=== PATIENT | female | born 1960 | race Caucasian/White ===

== ENCOUNTER 2017-02-06 18:18 | Emergency (ER) | payer MEDICARE, MEDICAID ==
--- NOTE | 2017-02-06 18:39 | ED Physician Chart ---
Chief Complaint/HPI - Patient Information Date Seen:: 02/06/17 Time Seen:: 18:33 Chief Complaint:: abd pain History of Present Illness:: pt here for 2 wks of worsening low mid abd crampy pain..mod severe now. with associated nausea and loss of apetite. 12 lbs wt loss and diarrhea of dark color 6-8x/day. pt is folowed by [facility] for last year and was txd for h pylori without success. she had a HH repair 12/25 and gb sx in past. pt has been txd for uti for last month w a abx that starts w a letter 'N "..possibly nitrofurantoin she has no fever or back pain or chest pain or uri sx. she is postmenopausal. Allergies:: Allergies Allergy/AdvReac Type Severity Reaction Status Date / Time No Known Allergies Allergy Verified 02/06/17 18:26 Vitals:: Vital Signs - 8 hr 02/06/17 18:18 Temp 97.0 F HR 82 RR 16 BP 123/84 O2 Sat % 96 Historian:: Patient Review of Systems - Review of Systems General/Constitutional: No fever, No chills, No weight loss, No weakness, No diaphoresis, No edema, No loss of appetite Skin: No skin lesions, No rash, No bruising Head: No headache, No light-headedness Eyes: No loss of vision, No pain, No diplopia ENT: No earache, No nasal drainage, No sore throat, No tinnitus Neck: No neck pain, No swelling, No thyromegaly, No stiffness, No mass noted Cardio Vascular: No chest pain, No palpitations, No PND, No orthopnea, No edema Pulmonary: No SOB, No cough, No sputum, No wheezing GI: Nausea, No vomiting, Diarrhea, Pain, No melena, No hematochezia, No constipation, No hematemesis G/U: No dysuria, No frequency, No hematuria Actuarial Technician: No vaginal discharge, No abnormal vaginal bleed Musculoskeletal: No bone or joint pain, No back pain, No muscle pain Endocrine: No polyuria, No polydipsia Psychiatric: No prior psych history, No depression, No anxiety, No suicidal ideation Hematopoietic: No bruising, No lymphadenopathy Allergic/Immuno: No urticaria, No angioedema Neurological: No syncope, No focal symptoms, No weakness, No paresthesia, No headache, No seizure, No dizziness, No confusion, No vertigo Past Medical History - Past Medical History Past Medical History: DM, Asthma/COPD, PUD/GERD Social History: Non Smoker, No Alcohol Surgical History: Cholecystectomy, Hernia (hh repair 12/25) Medication: Reviewed Family Medical History - Family Member Mother Living Status: Hx Family Diabetes: Yes Physical Exam - Physical Examination General/Constitutional: Awake, Well-developed, well-nourished, Alert, No distress, GCS 15, Non-toxic appearing, Ambulatory Head: Atraumatic Eyes: Lids, conjuctiva normal, PERRL, EOMI Skin: Nl inspection, No rash, No skin lesions, No ecchymosis, Well hydrated, No lymphadenopathy ENMT: External ears, nose nl, Nasal exam nl, Lips, teeth, gums nl Neck: Nontender, Full ROM w/o pain, No JVD, No nuchal rigidity, No bruit, No mass, No stridor Respiratory: Nl effort/Exclusion, Clear to Auscultation, No Wheeze/Rhonchi/Rales Cardio Vascular: RRR, No murmur, gallop, rubs, NL S1 S2 GI: No organomegaly, No hernia, Normal BS's, Nondistended, No mass/bruits, No McBurney tenderness Other GI comments:: vague tndr in low mid abd. no masses. prior gb sx scars(laproscopic). pos nabs. no rebound. pt appears well hydrated w good skin turgor. : No CVA tenderness Extremities: No tenderness or effusion, Full ROM, normal strength in all extremities, No edema, Normal digits & nails Neuro/Psych: Alert/oriented, DTR's symmetric, Normal sensory exam, Normal motor strength, Judgement/insight normal, Mood normal, Normal gait, No focal deficits Misc: normal gait, Normal back, No paraspinal tenderness Labs/Radiology/EKG Results - Lab Results Results: Laboratory Tests 02/06/17 02/06/17 02/06/17 18:55 18:55 18:55 WBC 9.7 RBC 4.71 Hgb 12.9 Hct 39.5 MCV 83.9 MCH 27.3 MCHC Differential 32.5 RDW 14.1 Plt Count 342 MPV 8.0 Neutrophils % 59.1 Lymphocytes % 29.6 Monocytes % 8.4 Eosinophils % 2.3 Basophils % 0.6 Sodium 134 L Potassium 3.4 L Chloride 106 Carbon Dioxide 22.5 Anion Gap 8.9 BUN 19 Creatinine 0.7 Est GFR ( Amer) > 60.0 Est GFR (Non-Af Amer) > 60.0 BUN/Creatinine Ratio 27.1 Glucose 92 Calcium 9.3 Total Bilirubin 0.3 AST 21 ALT 23 Alkaline Phosphatase 101 Total Protein 7.3 Albumin 4.5 Globulin 2.8 Albumin/Globulin Ratio 1.6 Lipase 45 Serum , Qual NEGATIVE Urine Source Urine Color Urine Clarity Urine pH Ur Specific [place] Urine Protein Urine Glucose (UA) Urine Ketones Urine Blood Urine Nitrate Urine Bilirubin Urine Urobilinogen Ur Leukocyte Esterase Urine RBC Urine WBC Ur Epithelial Cells Urine Bacteria 02/06/17 19:00 WBC RBC Hgb Hct MCV MCH MCHC Differential RDW Plt Count MPV Neutrophils % Lymphocytes % Monocytes % Eosinophils % Basophils % Sodium Potassium Chloride Carbon Dioxide Anion Gap BUN Creatinine Est GFR ( Amer) Est GFR (Non-Af Amer) BUN/Creatinine Ratio Glucose Calcium Total Bilirubin AST ALT Alkaline Phosphatase Total Protein Albumin Globulin Albumin/Globulin Ratio Lipase Serum , Qual Urine Source CLEAN C Urine Color YELLOW Urine Clarity CLEAR Urine pH 6.0 Ur Specific [place] 1.020 Urine Protein TRACE Urine Glucose (UA) NEGATIVE Urine Ketones 15 H Urine Blood TRACE Urine Nitrate NEGATIVE Urine Bilirubin NEGATIVE Urine Urobilinogen 0.2 Ur Leukocyte Esterase NEGATIVE Urine RBC 0-2 Urine WBC 6-10 H Ur Epithelial Cells MODERATE Urine Bacteria NONE SEEN - Radiology Results Results: ct abd/p no active dz. appy ok. diverticulosis. no inflamation. stone in rt kidney (not new per pt). fatty mass at distal esophagus (assumed to be post op change from sx last yr) ED Septic Shock - . Is Septic Shock (SBP<90, OR Lactate>4 mmol\\L) present?: No - <6hrs of presentation: Vital Signs: Vital Signs - 8 hr 02/06/17 18:18 Temp 97.0 F HR 82 RR 16 BP 123/84 O2 Sat % 96 Reassessment (Disposition) - Reassessment Reassessment:: results all reviewed w pt. she is asking for pain med now. ct and labs all done and reviewed w pt. plan dw pt. fu w pmd tmrw advised. pt says she finished abx for uti today..wants more since sign of uti seen on labs (advised pt this is hard to do without knownig what she is on and why...will give rx but advise she see pmd tmrw for confirmation. pt to return if worse pain/fever. .norco 5s no 14. rx bactrim ds x 5d bid. she may use immodiium prn. Reassessment Condition:: Improved - Diagnosis Diagnosis:: 1 uti 2 gastroenteritis/ diarrhea 3 abdominal pain of uncertain etiology - Aftercare/Follow up Instructions Aftercare/Follow-Up Instructions:: Counseled pt regarding lab results/diagnosis & need follow up - Patient Disposition Discharge/Transfer:: Home Condition at Disposition:: Improved
[2017-02-06] MEDS ORDERED: Sodium Chloride 0.9% 1,000 ML IV ONE (18:40)
[2017-02-06 19:06] LABS: % BASOPHILS 0.6 % (0.0-2.0); % EOSINOPHILS 2.3 % (0.0-5.0); % LYMPHOCYTES 29.6 % (20.0-50.0); % MONOCYTES 8.4 % (2.0-10.0); % NEUTROPHILS 59.1 % (40.0-80.0); HEMATOCRIT 39.5 % (35.0-45.0); HEMOGLOBIN 12.9 gm/dL (11.7-15.5); MEAN CELL VOLUME 83.9 fl (81-100); MEAN CORPUSCULAR HEMOGLOBIN 27.3 pg (27.0-31.0); MEAN CORPUSCULAR HGB CONC 32.5 pg (28.0-36.0); NEUTROPHILE ABSOLUTE 5.7 Th/cmm (1.8-8.0); PLATELET COUNT 342 Th/cmm (150-400); RED BLOOD COUNT 4.71 Mil/cmm (3.80-5.10); RED CELL DISTRIBUTION WIDTH 14.1 % (11.5-20.0); WHITE BLOOD COUNT 9.7 Th/cmm (4.8-10.8)
[2017-02-06 19:22] LABS: URINE BILIRUBIN NEGATIVE (NEGATIVE); URINE BLOOD TRACE (NEGATIVE); URINE COLOR YELLOW; URINE GLUCOSE (UA) NEGATIVE (NEGATIVE); URINE KETONE 15 mg/dL (NEGATIVE)
[2017-02-06 19:22] LABS: ALB/GLOB RATIO 1.6 (1.0-1.8); ALKALINE PHOSPHATASE 101 U/L (34-104); ANION GAP 8.9 (7.0-16.0); BILIRUBIN,TOTAL 0.3 mg/dL (0.3-1.0); BUN - UREA NITROGEN 19 mg/dL (7-25); BUN/CREATININE RATIO 27.1; CALCIUM SERUM 9.3 mg/dL (8.6-10.3); CARBON DIOXIDE 22.5 mEq/L (21.0-31.0); CHLORIDE 106 mEq/L (98-107); CREATININE - SERUM 0.7 mg/dL (0.6-1.2); GLUCOSE 92 mg/dL (70-105); LIPASE 45 U/L (11-82); POTASSIUM SERUM 3.4 mEq/L (3.5-5.1); SGOT 21 U/L (13-39); SGPT/ALT 23 U/L (7-52); SODIUM SERUM 134 mEq/L (136-145)
[2017-02-06 19:23] LABS: URINE BACTERIA NONE SEEN /hpf (NONE SEEN); URINE EPITHELIAL CELLS MODERATE /lpf (FEW); URINE PROTEIN TRACE mg/dL (NEGATIVE); URINE RBC 0-2 /hpf (0-5); URINE UROBILINOGEN 0.2 E.U./dL (0.2 - 1.0)
--- NOTE | 2017-02-07 10:41 | Diagnostic Imaging Report ---
CT scan abdomen and pelvis without intravenous contrast HISTORY: Pain Total DLP equals 387 CTDI equals 8.2 Axial sections were obtained from the xiphoid process down to the pubic symphysis. Limited sections through the lower chest demonstrate a thick-walled dilated esophagus. Apparent intraluminal density is noted. Etiology uncertain. Clinical correlation and if necessary endoscopy provide for further assessment. The liver is enlarged. There is a decrease in overall parenchymal density consistent with fatty infiltration. No focal lesions. The spleen appears normal. No focal bowel is seen within the pancreas. Surgical clips are seen in the cordell hepatis region consistent with a prior cholecystectomy. A punctate nonobstructing calculus is seen within the medullary region of the right kidney. The left kidney appears normal. The exam of the pelvis demonstrates preservation of normal fat planes. No abnormal soft tissue masses or abnormal fluid collections. Several colonic diverticula noted. No abnormalities are seen in the region of the appendix. IMPRESSION: 1. Abnormal thick walled lower esophagus with suggestion of intraluminal density. Etiology uncertain. Clinical correlation and if necessary endoscopy would provide for further assessment. 2. Hepatomegaly along with changes consistent with fatty infiltration. The findings should be correlated with liver function tests 3. Diverticulosis 4. Punctate nonobstructing right renal calculus 5. Findings of a prior cholecystectomy
== END 2017-02-06 20:15 | disposition home or self-care (01) ==
LOC: ER 18:18
DX: R10.9 Unspecified abdominal pain (principal); N39.0 Urinary tract infection, site not specified; K52.9 Noninfective gastroenteritis and colitis, unspecified; E11.9 Type 2 diabetes mellitus without complications; J45.909 Unspecified asthma, uncomplicated; K21.9 Gastro-esophageal reflux disease without esophagitis; Z90.49 Acquired absence of other specified parts of digestive tract
CPT/HCPCS: 99285; 96374; 74176; 36415; 85025; 81001; 84703; 83690; 80053; J2405; J7030

== ENCOUNTER 2017-02-28 15:37 | Inpatient (IN) | payer MEDICARE, MEDICAID ==
--- NOTE | 2017-02-28 17:05 | ED Physician Chart ---
Chief Complaint/HPI - Patient Information Date Seen:: 02/28/17 Time Seen:: 16:50 Chief Complaint:: abdominal pain History of Present Illness:: The patient has had mid and upper abdominal pain intermittently for a few weeks. She vomited 3 times yesterday and 2 times today. She said red bloody diarrhea 5-6 times today. She estimates about 1/2 cup of blood loss from the bloody diarrhea today. Patient was diagnosed as having H. pylori about 1 year ago. Patient has had 3-4 prior episodes of bloody diarrhea last one about 6 months ago. Allergies:: Allergies Allergy/AdvReac Type Severity Reaction Status Date / Time No Known Allergies Allergy Verified 02/28/17 16:25 Vitals:: Vital Signs - 8 hr 02/28/17 16:17 Temp 98.4 F HR 60 RR 16 BP 125/74 O2 Sat % 96 Historian:: Patient Review:: Nurse's Note Reviewed Review of Systems - Review of Systems General/Constitutional: No fever, No chills Skin: No skin lesions Head: No headache Eyes: No loss of vision ENT: No earache Neck: No neck pain Cardio Vascular: No chest pain, No palpitations Pulmonary: No cough, No sputum GI: Nausea, Vomiting, Diarrhea G/U: No dysuria, No hematuria Musculoskeletal: No bone or joint pain, No back pain, No muscle pain Endocrine: No polyuria, No polydipsia Psychiatric: No prior psych history, No depression Hematopoietic: No bruising Allergic/Immuno: No urticaria Neurological: No syncope, No focal symptoms Past Medical History - Past Medical History Past Medical History: HTN, Asthma/COPD, Dyslipidemia, Other (diverticulosis; fibromyalgia) Family History: Diabetes Melitus, HTN Social History: Non Smoker, No Alcohol Surgical History: Cholecystectomy, other (hiatal hernia repair) Psychiatricy History: None Medication: Reviewed Family Medical History - Family Member Mother Living Status: Hx Family Diabetes: Yes Physical Exam - Physical Examination General/Constitutional: Well-developed, well-nourished, Alert, No distress Head: Atraumatic Eyes: Lids, conjuctiva normal, PERRL Skin: Nl inspection, No rash, No skin lesions, No ecchymosis ENMT: External ears, nose nl, Lips, teeth, gums nl, Oropharynx nl, Tonsils nl Neck: No nuchal rigidity Respiratory: Nl effort/Exclusion, Clear to Auscultation, No Wheeze/Rhonchi/Rales Cardio Vascular: RRR, No murmur, gallop, rubs GI: No hernia, Normal BS's Other GI comments:: Upper and midabdominal tenderness : No CVA tenderness Extremities: Normal digits & nails Neuro/Psych: Alert/oriented, No focal deficits Misc: Normal back, No paraspinal tenderness Labs/Radiology/EKG Results - Lab Results Results: Laboratory Results - last 24 hr 02/28/17 02/28/17 02/28/17 17:06 17:06 17:11 WBC 8.9 RBC 4.23 Hgb 11.8 Hct 35.6 MCV 84.1 MCH 27.8 MCHC Differential 33.0 RDW 14.0 Plt Count 286 MPV 7.9 Neutrophils % 63.6 Lymphocytes % 27.2 Monocytes % 6.7 Eosinophils % 2.1 Basophils % 0.4 Sodium 136 Potassium 3.5 Chloride 107 Carbon Dioxide 25.1 Anion Gap 7.4 BUN 11 Creatinine 0.7 Est GFR ( Amer) > 60.0 Est GFR (Non-Af Amer) > 60.0 BUN/Creatinine Ratio 15.7 Glucose 107 H Calcium 9.2 Lipase 40 Urine Source [place] Urine Color YELLOW Urine Clarity SLIGHT [place]ZY Urine pH 6.0 Ur Specific [place] 1.025 Urine Protein NEGATIVE Urine Glucose (UA) NEGATIVE Urine Ketones NEGATIVE Urine Blood NEGATIVE Urine Nitrate NEGATIVE Urine Bilirubin NEGATIVE Urine Urobilinogen 0.2 Ur Leukocyte Esterase SMALL H Urine RBC NONE SEEN Urine WBC 10-25 H Ur Epithelial Cells MODERATE Urine Bacteria FEW - Radiology Results Results: CT scan of abdomen and pelvis showed mild diverticulosis ED Septic Shock - . Is Septic Shock (SBP<90, OR Lactate>4 mmol\L) present?: No - <6hrs of presentation: Vital Signs: Vital Signs - 8 hr 02/28/17 16:17 Temp 98.4 F HR 60 RR 16 BP 125/74 O2 Sat % 96 ED Discharge Plan - Patient Disposition Admit/Discharge/Transfer: Acute Care w/in this hosp Condition at Disposition: Stable
[2017-02-28] MEDS ORDERED: Sodium Chloride 0.9% 1,000 ML IV ONE ×2 (17:08→20:09)
[2017-02-28] MEDS ORDERED: HYDROmorphone 2 mg/mL 1mL Vial IVP STA (17:13)
[2017-02-28 17:14] LABS: % BASOPHILS 0.4 % (0.0-2.0); % EOSINOPHILS 2.1 % (0.0-5.0); % LYMPHOCYTES 27.2 % (20.0-50.0); % MONOCYTES 6.7 % (2.0-10.0); % NEUTROPHILS 63.6 % (40.0-80.0); HEMATOCRIT 35.6 % (35.0-45.0); HEMOGLOBIN 11.8 gm/dL (11.7-15.5); MEAN CELL VOLUME 84.1 fl (81-100); MEAN CORPUSCULAR HEMOGLOBIN 27.8 pg (27.0-31.0); MEAN PLATELET VOLUME 7.9 fl; NEUTROPHILE ABSOLUTE 5.7 Th/cmm (1.8-8.0); PLATELET COUNT 286 Th/cmm (150-400); RED BLOOD COUNT 4.23 Mil/cmm (3.80-5.10); WHITE BLOOD COUNT 8.9 Th/cmm (4.8-10.8)
[2017-02-28] MEDS ORDERED: HYDROmorphone 2 mg/mL 1mL Vial ONE ×2 (17:20→22:36)
[2017-02-28 17:31] LABS: ANION GAP 7.4 (7.0-16.0); BUN - UREA NITROGEN 11 mg/dL (7-25); BUN/CREATININE RATIO 15.7; CALCIUM SERUM 9.2 mg/dL (8.6-10.3); CARBON DIOXIDE 25.1 mEq/L (21.0-31.0); CHLORIDE 107 mEq/L (98-107); CREATININE - SERUM 0.7 mg/dL (0.6-1.2); GLUCOSE 107 mg/dL (70-105); LIPASE 40 U/L (11-82); POTASSIUM SERUM 3.5 mEq/L (3.5-5.1); SODIUM SERUM 136 mEq/L (136-145)
[2017-02-28 17:35] LABS: URINE BILIRUBIN NEGATIVE (NEGATIVE); URINE BLOOD NEGATIVE (NEGATIVE); URINE COLOR YELLOW; URINE GLUCOSE (UA) NEGATIVE (NEGATIVE); URINE KETONE NEGATIVE (NEGATIVE); URINE PROTEIN NEGATIVE (NEGATIVE); URINE RBC NONE SEEN /hpf (0-5); URINE UROBILINOGEN 0.2 E.U./dL (0.2 - 1.0)
[2017-02-28 17:36] LABS: URINE BACTERIA FEW /hpf (NONE SEEN); URINE EPITHELIAL CELLS MODERATE /lpf (FEW)
[2017-02-28] MEDS ORDERED: Diatrizoate Meglumine/Diatri 30 mL Sol ONE (17:41)
[2017-02-28] MEDS ORDERED: Ciprofloxacin 200mg Premix PB 200 MG/100 ML BAG IV ONE (23:36)
[2017-02-28] MEDS: Ciprofloxacin 200mg Premix PB 200 MG/100 ML BAG IV SCH (23:50)
[2017-03-01] MEDS ORDERED: D5-0.45NS 1,000 ML IV ONE (00:28)
[2017-03-01 00:34] VITALS: BP 136/81
[2017-03-01] MEDS: HYDROmorphone 1 mg/mL 1mL Syr IVP PRN ×6 (00:50→22:50)
[2017-03-01] MEDS ORDERED: metroNIDAZOLE 500mg/NS 100mL 500 MG/100 ML BAG IV ONE (05:05)
[2017-03-01] MEDS: methylPREDNISolone SS 40 mg Vial IVP SCH ×3 (05:12→21:43)
[2017-03-01] MEDS: metroNIDAZOLE 500mg/NS 100mL 500 MG/100 ML BAG IV SCH ×3 (05:12→21:43)
[2017-03-01 07:28] LABS: ALB/GLOB RATIO 1.6 (1.0-1.8); ALKALINE PHOSPHATASE 84 U/L (34-104); ANION GAP 10.2 (7.0-16.0); BILIRUBIN,TOTAL 0.2 mg/dL (0.3-1.0); BUN - UREA NITROGEN 5 mg/dL (7-25); BUN/CREATININE RATIO 8.3; CALCIUM SERUM 8.8 mg/dL (8.6-10.3); CARBON DIOXIDE 25.3 mEq/L (21.0-31.0); CHLORIDE 107 mEq/L (98-107); CHOLESTEROL 120 mg/dL (<200); CREATININE - SERUM 0.6 mg/dL (0.6-1.2); GLUCOSE 111 mg/dL (70-105); MAGNESIUM 1.6 mg/dL (1.9-2.7); POTASSIUM SERUM 3.5 mEq/L (3.5-5.1); SGOT 18 U/L (13-39); SGPT/ALT 16 U/L (7-52); SODIUM SERUM 139 mEq/L (136-145); TRIGLYCERIDES 202 mg/dL (<150)
[2017-03-01 07:30] LABS: % BASOPHILS 0.1 % (0.0-2.0); % LYMPHOCYTES 35.4 % (20.0-50.0); % MONOCYTES 5.8 % (2.0-10.0); % NEUTROPHILS 55.7 % (40.0-80.0); HEMATOCRIT 35.9 % (35.0-45.0); MEAN CELL VOLUME 84.3 fl (81-100); MEAN CORPUSCULAR HEMOGLOBIN 28.1 pg (27.0-31.0); MEAN CORPUSCULAR HGB CONC 33.3 pg (28.0-36.0); MEAN PLATELET VOLUME 8.6 fl; NEUTROPHILE ABSOLUTE 4.4 Th/cmm (1.8-8.0); PLATELET COUNT 273 Th/cmm (150-400); RED BLOOD COUNT 4.26 Mil/cmm (3.80-5.10); RED CELL DISTRIBUTION WIDTH 14.1 % (11.5-20.0); WHITE BLOOD COUNT 7.9 Th/cmm (4.8-10.8)
[2017-03-01] MEDS: Ciprofloxacin 200mg Premix PB 200 MG/100 ML BAG IV SCH ×2 (08:23→22:51)
--- NOTE | 2017-03-01 10:54 | Diagnostic Imaging Report ---
CT abdomen and pelvis without intravenous contrast Indication: Diverticulosis Comparison: CT abdomen and pelvis on 02/06/2017, Technique: Axial images were obtained from the lung bases to the bilateral proximal femurs without IV contrast. Oral contrast was administered. Reconstructions were made. Total DLP 424, CTD I 9 FINDINGS: Hypoventilatory and atelectatic changes of the lungs are noted. Evaluation of the solid organs is limited due to lack of IV contrast. The liver demonstrates heterogeneous echotexture with areas of fatty infiltration. The patient is status post cholecystectomy. No focal splenic or pancreatic lesions. No focal adrenal views. No evidence of hydronephrosis. Subcentimeter low-density lesion of the superior pole right kidney is noted too small to characterize. 3 mm nonobstructive right renal stone is noted. No evidence of bowel obstruction. Diverticulosis is noted without evidence of diverticulitis. No evidence of acute appendicitis. There is abnormal soft tissue density seen along the distal esophagus and gastroesophageal region with postsurgical changes also noted in this region. No evidence of free fluid or free air. Degenerative changes of the spine and pelvis are noted. IMPRESSION: Abnormal soft tissue density along the distal esophagus and gastroesophageal region. Findings may sequela of previous surgery as postsurgical changes are also seen in this region. Other etiologies such as mass lesion cannot be excluded. Recommend correlation with clinical history and possible follow-up with endoscopy. Heterogeneous liver with areas of fatty infiltration. The less likely of the subtle mass lesion cannot be completely excluded. Short-term follow-up CT with IV contrast would provide additional detail and assessment. Diverticulosis without evidence of diverticulitis. 3 mm nonobstructive right renal stone Evidence of prior cholecystectomy.
--- NOTE | 2017-03-01 20:46 | Consultation ---
DATE OF CONSULTATION: 03/01/2017 INPATIENT GASTROENTEROLOGY CONSULTATION NOTE REFERRING PHYSICIAN: Dr. Booker. REASON FOR CONSULTATION: Diarrhea. HISTORY OF PRESENT ILLNESS: This is a 56-year-old female having intermittent lower abdominal pain for 2 weeks and that time developed some diarrhea that resulted in some blood. The patient denies having any nausea or vomiting. PAST MEDICAL HISTORY: Hiatal hernia, gallstones. Also has history of hypertension, asthma, COPD, hyperlipidemia. PAST SURGICAL HISTORY: Hiatal hernia repair and cholecystectomy. FAMILY HISTORY: Noncontributory. SOCIAL HISTORY: Denies tobacco, alcohol or IV drug usage. ALLERGIES: None. CURRENT MEDICATIONS: Albuterol, Lipitor, BuSpar, Cipro, Dilaudid, lisinopril, Solu-Medrol, Lopressor, Flagyl, Singulair, Zofran, Zoloft, Imitrex, Desyrel. REVIEW OF SYSTEMS: Ten point review of system was performed and the pertinent positives are the diarrhea, lower abdominal pain. All other systems were otherwise negative. PHYSICAL EXAMINATION: VITAL SIGNS: Temperature 97.8, breathing 18, pulse of 58, blood pressure 117/78, satting 97%. GENERAL: In no apparent distress. EYES: Anicteric, normal conjunctivae. HEENT: Normocephalic, atraumatic. Moist mucous membranes. NECK: Soft, supple. CHEST: Clear. No effort. CARDIOVASCULAR: Regular rate and rhythm. ABDOMEN: Soft, nondistended. Tender lower abdomen. No rebound or guarding. SKIN: Warm, dry. EXTREMITIES: Reveal no cyanosis. PSYCHOLOGIC: Alert and oriented x 3. LABORATORY DATA: Show white count 7.9, hemoglobin 12, platelets of 273. Total bilirubin 0.2, AST is 18, ALT 16, alkaline phosphatase 84. Lipase is 40, UA shows positive for leukocyte esterase. Stool OB is negative. CT abdomen and pelvis showed abnormal distal esophagus, diverticulosis without diverticulitis, cholecystectomy changes. IMPRESSION: A 56-year-old female with diarrhea, cause could be from underlying infectious process; therefore, stool studies will be obtained. The patient also has history of cholecystectomy and therefore that is reason for the possibility bile acid malabsorption. The patient has abnormal imaging of the esophagus, likely from a hiatal hernia repair, ____ endoscopy can be done to evaluate this area. PLAN: 1.Consider EGD. 2.Trial cholestyramine. 3.Stool collection. 4.If diarrhea does not improve, may need colonoscopy. Thank you for allowing me to participate. Please call me if any questions. JOB# [id number]
--- NOTE | 2017-03-01 21:15 | Consultation ---
DATE OF CONSULTATION: 03/01/2017 The patient was seen, chart reviewed, discussed with staff. HISTORY OF PRESENT ILLNESS: The patient is a 56-year-old female with multiple medical issues, has a history of depression, anxiety, was admitted to the hospital with mid abdominal pain for the past few weeks and vomiting. The patient reports helplessness and anxiety, talked about the divorce from her , has been taking Zoloft 150 mg daily. The patient, however, did not have any suicidal thoughts. The patient still having lack of energy, poor motivation, and helplessness. PAST PSYCHIATRIC HISTORY: Outpatient treatment. Followed by Dr. Bowie in [place]. PAST MEDICAL HISTORY: As per [facility]. PSYCHOSOCIAL HISTORY: The patient is , said she she sometimes helps taking care of her grandchildren. MENTAL STATUS EXAMINATION: Speech fluent, not pressured. Affect is dysthymic. No audiovisual hallucinations. No paranoid delusions. She is oriented to time, place and person. ASSESSMENT: Major depressive disorder, recurrent, moderate. PLAN: Discussed the options treatment with the patient. We will increase Zoloft to 200 mg p.o. daily. The patient is to consider outpatient therapy once out of the hospital. We will follow closely. Thank you for the consultation. [facility]# [id number]
[2017-03-01] MEDS: Atorvastatin Calcium 10 MG TAB PO SCH (21:43)
[2017-03-02] MEDS: metroNIDAZOLE 500mg/NS 100mL 500 MG/100 ML BAG IV SCH ×3 (05:39→22:14)
[2017-03-02] MEDS: methylPREDNISolone SS 40 mg Vial IVP SCH ×3 (05:40→20:26)
[2017-03-02] MEDS: HYDROmorphone 1 mg/mL 1mL Syr IVP PRN ×2 (05:48→10:12)
[2017-03-02 07:15] LABS: % BASOPHILS 0.1 % (0.0-2.0); % LYMPHOCYTES 18.3 % (20.0-50.0); % MONOCYTES 4.1 % (2.0-10.0); % NEUTROPHILS 77.5 % (40.0-80.0); HEMATOCRIT 33.4 % (35.0-45.0); HEMOGLOBIN 11.1 gm/dL (11.7-15.5); MEAN CELL VOLUME 84.1 fl (81-100); MEAN CORPUSCULAR HGB CONC 33.3 pg (28.0-36.0); MEAN PLATELET VOLUME 8.4 fl; NEUTROPHILE ABSOLUTE 6.3 Th/cmm (1.8-8.0); PLATELET COUNT 306 Th/cmm (150-400); RED BLOOD COUNT 3.98 Mil/cmm (3.80-5.10); WHITE BLOOD COUNT 8.1 Th/cmm (4.8-10.8)
[2017-03-02 07:31] LABS: ALB/GLOB RATIO 1.6 (1.0-1.8); ALKALINE PHOSPHATASE 75 U/L (34-104); ANION GAP 5.7 (7.0-16.0); BILIRUBIN,TOTAL 0.2 mg/dL (0.3-1.0); BUN - UREA NITROGEN 3 mg/dL (7-25); CALCIUM SERUM 8.8 mg/dL (8.6-10.3); CARBON DIOXIDE 28.5 mEq/L (21.0-31.0); CHLORIDE 105 mEq/L (98-107); CREATININE - SERUM 0.6 mg/dL (0.6-1.2); GLUCOSE 171 mg/dL (70-105); MAGNESIUM 1.9 mg/dL (1.9-2.7); POTASSIUM SERUM 3.2 mEq/L (3.5-5.1); SGOT 13 U/L (13-39); SGPT/ALT 14 U/L (7-52); SODIUM SERUM 136 mEq/L (136-145)
[2017-03-02 08:07] LABS: IRON SATURATION 10 % (15-55); TIBC (LCI) 445 ug/dL (250-450); UIBC 400 ug/dL (131-425)
[2017-03-02] MEDS: Ciprofloxacin 200mg Premix PB 200 MG/100 ML BAG IV SCH ×2 (08:30→20:26)
[2017-03-02] MEDS ORDERED: Potassium Chloride 20 mEq ER Tab PO ONE (15:37)
[2017-03-02] MEDS: Morphine Sulfate 2 mg/mL 1mL Syr IVP PRN ×2 (18:23→23:18)
[2017-03-02] MEDS: Ipratropium Neb 0.5 mg/2.5 mL UD HHN SCH (19:04)
[2017-03-02] MEDS: Albuterol Nebulizer 2.5mg/3mL HHN SCH (19:04)
[2017-03-02] MEDS: Atorvastatin Calcium 10 MG TAB PO SCH (20:25)
[2017-03-03 05:48] LABS: % BASOPHILS 0.7 % (0.0-2.0); % EOSINOPHILS 0.1 % (0.0-5.0); % MONOCYTES 6.2 % (2.0-10.0); HEMOGLOBIN 11.5 gm/dL (11.7-15.5); MEAN CELL VOLUME 84.8 fl (81-100); MEAN CORPUSCULAR HEMOGLOBIN 27.9 pg (27.0-31.0); MEAN CORPUSCULAR HGB CONC 32.9 pg (28.0-36.0); MEAN PLATELET VOLUME 8.3 fl; NEUTROPHILE ABSOLUTE 8.9 Th/cmm (1.8-8.0); PLATELET COUNT 309 Th/cmm (150-400); RED BLOOD COUNT 4.13 Mil/cmm (3.80-5.10)
[2017-03-03 05:53] LABS: WHITE BLOOD COUNT 11.4 Th/cmm (4.8-10.8)
[2017-03-03] MEDS: metroNIDAZOLE 500mg/NS 100mL 500 MG/100 ML BAG IV SCH ×3 (05:54→20:01)
[2017-03-03] MEDS: methylPREDNISolone SS 40 mg Vial IVP SCH ×3 (05:55→21:52)
[2017-03-03 06:11] LABS: ANION GAP 7.2 (7.0-16.0); BUN - UREA NITROGEN 8 mg/dL (7-25); BUN/CREATININE RATIO 13.3; CALCIUM SERUM 9.1 mg/dL (8.6-10.3); CARBON DIOXIDE 25.3 mEq/L (21.0-31.0); CHLORIDE 111 mEq/L (98-107); CREATININE - SERUM 0.6 mg/dL (0.6-1.2); GLUCOSE 143 mg/dL (70-105); MAGNESIUM 2.2 mg/dL (1.9-2.7); POTASSIUM SERUM 3.5 mEq/L (3.5-5.1); SODIUM SERUM 140 mEq/L (136-145)
[2017-03-03] MEDS: Ipratropium Neb 0.5 mg/2.5 mL UD HHN SCH ×4 (07:17→19:12)
[2017-03-03] MEDS: Albuterol Nebulizer 2.5mg/3mL HHN SCH ×2 (07:17→19:12)
[2017-03-03] MEDS: Ciprofloxacin 200mg Premix PB 200 MG/100 ML BAG IV SCH ×2 (08:05→21:52)
[2017-03-03] MEDS: Morphine Sulfate 2 mg/mL 1mL Syr IVP PRN ×2 (08:11→19:57)
[2017-03-03] MEDS: Atorvastatin Calcium 10 MG TAB PO SCH (21:52)
[2017-03-04 05:43] LABS: % BASOPHILS 1.3 % (0.0-2.0); % EOSINOPHILS 0.2 % (0.0-5.0); % LYMPHOCYTES 23.9 % (20.0-50.0); % MONOCYTES 6.2 % (2.0-10.0); % NEUTROPHILS 68.4 % (40.0-80.0); HEMATOCRIT 35.2 % (35.0-45.0); HEMOGLOBIN 11.8 gm/dL (11.7-15.5); MEAN CELL VOLUME 84.3 fl (81-100); MEAN CORPUSCULAR HEMOGLOBIN 28.2 pg (27.0-31.0); MEAN CORPUSCULAR HGB CONC 33.4 pg (28.0-36.0); MEAN PLATELET VOLUME 7.9 fl; NEUTROPHILE ABSOLUTE 7.2 Th/cmm (1.8-8.0); PLATELET COUNT 317 Th/cmm (150-400); RED BLOOD COUNT 4.18 Mil/cmm (3.80-5.10); RED CELL DISTRIBUTION WIDTH 14.4 % (11.5-20.0); WHITE BLOOD COUNT 10.4 Th/cmm (4.8-10.8)
[2017-03-04 06:02] LABS: INR 0.98 (0.5-1.4); PROTHROMBIN TIME (TEST) 10.2 SECONDS (9.5-11.5)
[2017-03-04] MEDS: methylPREDNISolone SS 40 mg Vial IVP SCH (06:21)
[2017-03-04] MEDS: metroNIDAZOLE 500mg/NS 100mL 500 MG/100 ML BAG IV SCH (06:23)
[2017-03-04] MEDS: Ipratropium Neb 0.5 mg/2.5 mL UD HHN SCH ×3 (07:07→15:44)
[2017-03-04] MEDS: Albuterol Nebulizer 2.5mg/3mL HHN SCH (07:07)
[2017-03-04] MEDS: Ciprofloxacin 200mg Premix PB 200 MG/100 ML BAG IV SCH (09:45)
--- NOTE | 2017-03-04 09:58 | Diagnostic Imaging Report ---
Portable chest x-ray HISTORY: Shortness of breath The heart size is difficult to assess with portable technique in a poor inspiration. A linear density seen in the left lung base that may be associated with scarring or subsegmental atelectasis. No other focal processes. No hilar or mediastinal abnormalities. IMPRESSION: 1. Linear density within the left lung base that may be associated with scarring or subsegmental atelectasis.
--- NOTE | 2017-03-04 13:26 | Operative Report ---
GI Operative Report - Gastroenterology Procedure:: egd with bx and colo with bx Indication for procedure:: n/v and diarrhea change in bowel habit Procedure consent:: risks benefits alternatives nature and indications were discussed, mentioned bleeding infection perforation, missed lesions and cancer, need for surgery, disability cardiopulmonary arrest. pt family expressed understanding and gave informed consent Anesthesia:: mac Preoperative diagnosis:: n/v change in bowel habit Postoperative diagnosis:: GE at 37 cm; irregular z line normal stomach s/p bx normal duodenum sigmoid diverticulosis mild random bx normal terminal ileum small internal hemorrhoids Description of Procedure:: gastroscope advanced from the mouth into the duodenum then withdrawn colonosocpe advanced from anus to cecum then withdrawn Recommendations:: 1.protonix 2.follow up with primary doctor 3.follow up with gi in 6-8 weeks 4.repeat colonoscopy in 5 yrs
--- NOTE | 2017-03-04 20:26 | Progress Notes ---
DATE: 03/04/2017 SUBJECTIVE: The patient was seen, chart reviewed, discussed with staff. Still with episodes of anxiety and some helplessness, talked about depression. The patient, however, is taking medications and she is cooperative with staff. MENTAL STATUS EXAM: Speech fluent, not pressured. Affect remains anxious and somewhat depressed. No audiovisual hallucinations at this time. She is oriented x 3, . PLAN: We will continue current medications, continue to monitor closely. Continue supportive measures. [facility]# [id number]
--- NOTE | 2017-03-05 21:23 | Admit Criteria Form ---
Admit Criteria Forms - Admit Criteria Diagnosis: ABDOMINAL PAIN Clinical Indications for Admission to Inpatient Care (Place 'X' for any and all applicable criteria): Admission is indicated for ANY ONE of the following(1)(2)(3)(4)(5): [ X]I. Inpatient admission required rather than observation care (Also use Abdominal Pain: Observation Care, as appropriate) because of ANY ONE of the following: [ ]a) Severe pain requiring acute inpatient management [X ]b) Identification of etiology/finding that requires inpatient care (eg, aortic dissection, free air) [ ]c) Absent bowel sounds with complete ileus(6) [ ]d) Suspected toxic megacolon [ ]e) Severe electrolyte abnormalities requiring inpatient care [ ]f) High fever or infection requiring inpatient admission as indicated by ANY ONE of following(7)(8): [ ] i) Appropriate outpatient or observational care antimicrobial treatment unavailable, not effective, or not feasible [ ] ii) Documented bacteremia [ ] iii) Temperature > 104.9 degrees F (oral) [ ] iv) T >103.1 F (oral) or < 96.8 F(rectal) that does not respond to all emergency treatment measures [ ]g) Signs of intestinal obstruction [B] [ ]h) Hemodynamic instability [ ]i) IV fluid to replace significant ongoing losses (greater than 3 L/m2 per day) (12)(13) [ ]j) Percutaneous or open drainage (eg, abscess, biliary tract ) procedures [ ]k) Parenteral nutrition regimen that must be implemented on inpatient basis [ ]l) Other condition,treatment or monitoring requiring inpatient admission. [ ]II. Peritoneal signs present [ ]III. Surgery needed that cannot be performed on an ambulatory basis. [ ]IV. Evaluation requires patient to not eat or drink for extended period ( eg, more than 24 hours). [ ]V. Contraindications and/or Inappropriate clinical situations for Observational Care in patients with abdominal pain, when ANY ONE of the following is required: [ ]a) Thorough evaluation is required to prevent catastrophic events due to delays in diagnosing (e.g.Mesenteric ischemia) 1,3 [ ]b) Patient with severe pathology or with chronic symptoms unlikely to improve in the ED stay (3) [ ]. General contraindications and/or Inappropriate clinical situations for Observational Care in patients with abdominal pain, when ANY ONE of the following is required: [ ]a) Prediction of prolongation of LOS based on ANY ONE of the following may be considered as a contraindication for observational care 2, 3, 4, 5, 6, 7, 8, 9, 10, 11 [ ]i) Age > 65 yrs. [ ]ii) Patient arriving by ambulance [ ]iii) Patient with high acuity [ ]iv) Patient requiring vital sign monitoring [ ]v) Patient on IV medication [ ]b) Systolic blood pressures 180mmHg 3,12 [ ]c) Patient with altered mental status including delirium and other alteration of consciousness, (3) [ ]d) Patient whose discharge disposition will be to a half-way home or rehabilitation home should not be managed in Emergency Department Observation Unit. CMS rule requires 3 days hospital stay before such placement.3,13 [ ]e) Patient with failure to thrive due to broad array of etiologies 3,16,17 [ ]f) Inability to ambulate 3,14 Extended stay beyond goal length of stay may be needed for(2)(3): [ ]a) Persistent abdominal pain with suspected intra-abdominal process [ ]b) Diagnosed condition requiring continued stay (e.g., pancreatitis, complicated diverticulitis) [ ]c) Surgery (e.g., colectomy) The original [employer] [facility] [employer] content created by [employer] has been revised. The portions of the content which have been revised are identified through the use of italic text or in bold, and [facility] has neither reviewed nor approved the modified material.All other unmodified content is copyright [employer]. Please see references footnoted in the original [facility] edition 2016 Admit Criteria Met?: Yes
--- NOTE | 2017-03-06 04:44 | Pathology Report ---
[id number] Collection Date: 03/04/2017 Surgeon: Dr. Sujata Schultz Specimen Description: 1. Duodenum biopsy 2. Antrum biopsy 3. Esophageal biopsy 4. Random colon biopsy Gross Description: Part I: Received in formalin are two joseph soft tissue fragments, each measuring 0.1 cm in greatest dimension. Totally submitted in one cassette labeled A. Gross Description: Part II: Received in formalin are two joseph soft tissue fragments, ranging from 0.1 to 0.2 cm in greatest dimension. Totally submitted in one cassette labeled B. Gross Description: Part III: Received in formalin is a single joseph soft tissue fragment measuring 0.2 cm in greatest dimension. Totally submitted in one cassette labeled C. Gross Description: Part IV: Received in formalin are two joseph soft tissue fragments ranging from 0.1 to 0.2 cm in greatest dimension. Totally submitted in one cassette labeled D. Microscopic Description: Part I: The histologic sections show duodenal mucosa with intact intestinal villi, showing no evidence for villous abnormality. Diagnosis: Part I: No evidence for celiac disease/Sprue. Microscopic Description: Part II: The histologic sections show gastric mucosa with mild chronic inflammation consisting of lymphocytes and plasma cells. The Giemsa stain shows no evidence for Helicobacter pylori. Diagnosis: Part II: 1. Mild chronic gastritis, antrum biopsy. 2. The Giemsa stain is negative for Helicobacter pylori. Microscopic Description: Part III: The histologic sections show esophageal squamous and glandular mucosa with chronic inflammation present consisting of lymphocytes and plasma cells. The PAS stain shows no evidence for fungal organisms. The Alcian blue stain shows no significant abnormalities. Diagnosis: Part III: Chronic esophagitis. Microscopic Description: Part IV: The histologic sections show colon mucosa with focal areas of mild chronic inflammation consisting of small numbers of lymphocytes and plasma cells. There is no evidence for ulceration. Only small numbers of intraepithelial lymphocytes are appreciated (involving less than 15% of the epithelial cells). Diagnosis: Part IV: Mild nonspecific chronic inflammation (random colon biopsy). Comment: The inflammatory changes seen in these biopsies are relatively nonspecific. There is no evidence for microscopic colitis. Clinical correlation and follow-up is recommended. JOB# [id number] [facility]
--- NOTE | 2017-03-06 04:44 | Discharge Summary ---
DATE OF DISCHARGE: 03/04/2017 ADMITTING DIAGNOSES: Abdominal pain, bloody diarrhea, acute diverticulosis with diverticular bleed, and urinary tract infection. SECONDARY DIAGNOSES: Include diverticulosis, type 2 diabetes, hypertension, fibromyalgia, migraine headaches, and dyslipidemia. DISCHARGE DIAGNOSES: Mild sigmoid diverticulitis, small internal hemorrhoids, abdominal pain-improved, bloody diarrhea-improved, acute diverticulosis with diverticular bleed resolved, and urinary tract infection. CONSULTANTS: Dr. Schultz GI. MAJOR PROCEDURES: There was an EGD done showing normal stomach, normal duodenum. The colonoscopy shows mild sigmoid diverticulosis, normal terminal ileum, small internal hemorrhoids. There was an abdominal and pelvic CT done on 02/28/2017 showing abnormal soft tissue density along the distal esophagus and gastroesophageal region. Findings may sequela of previous surgery as postsurgical changes are also seen in this region. There is also diverticulosis without evidence of diverticulitis. There is a 3 mm nonobstructing right renal stone. There is evidence of prior cholecystectomy heterogeneous liver with areas of fatty infiltrations. DISCHARGE MEDICATIONS: Include Protonix 40 mg daily, atorvastatin 10 daily, BuSpar 30 b.i.d., Questran 4 mg t.i.d., lisinopril 5 daily, metoprolol 50 daily, Singulair 10 daily, Zoloft 200 daily, Trazodone 100 at bedtime. BRIEF HOSPITAL COURSE: This is a 56-year-old female with multiple medical issues who presented to the ER with a 2-month history of on and off abdominal pain and a 2-day history of bloody diarrhea. She was admitted to the Medical Surgical Floor and placed on IV fluids, IV antibiotics and IV steroids. She also was seen by GI and underwent the above-mentioned procedure with no major difficulties. The patient did well and by hospital day #1 was reporting improvement of her symptoms, although she still had some diarrhea. She was also noted to have a UTI and other pertinent findings included mild leukocytosis on admission, which improved by hospital day #2. CONDITION ON DISCHARGE: Stable. DISPOSITION: The patient was discharged home to self-care. She was instructed to follow up with her primary care doctor within 2-3 days. JOB# [id number] [facility]
== END 2017-03-04 17:12 | disposition home or self-care (01) | DRG 378 ==
LOC: ER 15:37 → MSI 22:30 → TELE 03-02 15:47
PROVIDERS: ADMIT Internal Medicine; ATTEND Internal Medicine
PROC: 0DB68ZX Excision of Stomach, Via Natural or Artificial Opening Endoscopic, Diagnostic (ICD-10-PCS; principal; 2017-03-04)
PROC: 0DBE8ZX Excision of Large Intestine, Via Natural or Artificial Opening Endoscopic, Diagnostic (ICD-10-PCS; 2017-03-04)
PROC: 0DJD8ZZ Inspection of Lower Intestinal Tract, Via Natural or Artificial Opening Endoscopic (ICD-10-PCS; 2017-03-04)
DX: K57.31 Diverticulosis of large intestine without perforation or abscess with bleeding (principal); F33.1 Major depressive disorder, recurrent, moderate; I10 Essential (primary) hypertension; N39.0 Urinary tract infection, site not specified; K57.32 Diverticulitis of large intestine without perforation or abscess without bleeding; R19.7 Diarrhea, unspecified; E11.9 Type 2 diabetes mellitus without complications; E78.5 Hyperlipidemia, unspecified; M79.7 Fibromyalgia; J44.9 Chronic obstructive pulmonary disease, unspecified; F41.9 Anxiety disorder, unspecified; K64.8 Other hemorrhoids; Z83.3 Family history of diabetes mellitus; Z82.49 Family history of ischemic heart disease and other diseases of the circulatory system; Z90.49 Acquired absence of other specified parts of digestive tract
CPT/HCPCS: 36415-UA; 71010-TC; 80048-TC; 80053-TC; 80061-TC; 81001-TC; 82270-TC; 82378-90; 82948-90; 83036-90; 83540-90; 83550-90; 83690-TC; 83735-TC; 84443-TC; 84484-TC; 85025-TC; 85610-TC; 87046-90; 87086-90; 87230-TC; 88305-90; 88312-90; 88313-90; 89055-TC; 90779; 90799; 93005; 94640; 94760; 96374; J0744; J1170; J2270; J2405; J2920; J7030; J7613; Z7610